=== PATIENT | male | born 1970 | race Caucasian/White ===

== ENCOUNTER 2020-08-15 08:50 | Day surgery (SDC) | payer OTHER ==
[2020-08-14 08:28] VITALS: BMI 24.3
[~2020-08-15 08:50] MED LIST: LACTATED RINGERS 1,000 ML IV SCH; LIDOCAINE 1% (10MG/ML) FOR IV START INTRADERMA PRN
[2020-08-15 09:49] VITALS: RESP 16; TEMP 98.2
[2020-08-15] MEDS ORDERED: LIDOCAINE 1% (10MG/ML) FOR IV START INTRADERMA ONE (09:58)
[2020-08-15] MEDS ORDERED: PROPOFOL 10 MG/ML 20 ML VIAL IV ONE (10:39)
--- NOTE | 2020-08-15 11:30 | P.PCN ---
Date of Procedure: 08/15/20 Description of Procedure: BRIEF HISTORY: Patient is a 50-year-old male presenting for outpatient colonoscopy for evaluation of positive Cologard. No prior colonoscopy. No change in bowel habits. No family history of colon cancer. PROCEDURE PERFORMED: Colonoscopy with polypectomy, Endo Clip placement and tattoo. PREOPERATIVE DIAGNOSIS: Positive Cologard, no prior colonoscopy. ESTIMATED BLOOD LOSS: Minimal. IV sedation per Anesthesia. PROCEDURE: After informed consent was obtained, the patient, was brought into the endoscopy unit. IV sedation was administered by Anesthesia under continuous monitoring. Digital rectal examination was normal. Initially the Olympus CF-190 flexible video colonoscope was then inserted in the rectum, gradually advanced into the cecum without any difficulty. Careful examination was performed as the scope was gradually being withdrawn. Ileocecal valve and the appendiceal orifice were visualized and appeared normal. Prep was excellent. Mucosa of the cecum, ascending colon, transverse colon, descending colon, sigmoid colon, and rectum appeared normal. 4 polyps ranging in size from 4 mm to 7 mm removed from the descending colon, cecum and rectum 2 with cold snare polypectomy. 12 mm ascending colon polyp removed with hot snare polypectomy. Large tubulovillous appearing rectal polyp approximately 10 cm from the anal verge and measuring 2 cm in size removed with hot snare polypectomy with Endo Clip placement 2 for hemostasis and tattoo just distal to the polyp Retroflexion was performed in the rectum and no lesions were seen. The patient tolerated the procedure well. IMPRESSION: 4 polyps removed with cold snare polypectomy from the descending colon, cecum, and rectum 2. Sessile ascending colon polyp removed with hot snare polypectomy. Large rectal polyp measuring 2 cm in size 10 centimeters from the anal verge removed with hot snare polypectomy with Endo Clip placement 2 and 2 mL of ink used to tattoo just distal to the polyp. Recommendations The case was discussed with the patient and his family. Okay for diet. Okay for medications. Await pathology from polypectomies. Follow-up in the clinic next week for further management, patient likely require repeat colonoscopy in the next 6 months to check for complete polypectomy pending pathology from polypectomy.
[2020-08-15 11:43] VITALS: BP 144/88; PULSE 53
== END 2020-08-15 11:56 | disposition home or self-care (01) ==
LOC: ORWHC2ENDO 08:50
PROVIDERS: ATTEND Internal Medicine
DX: D12.2 Benign neoplasm of ascending colon (principal); D12.0 Benign neoplasm of cecum; D12.4 Benign neoplasm of descending colon; D12.8 Benign neoplasm of rectum; I10 Essential (primary) hypertension; E78.5 Hyperlipidemia, unspecified; Z79.899 Other long term (current) drug therapy; Z98.890 Other specified postprocedural states
CPT/HCPCS: 88305; 45385; 45381; J2704; 44404; 45380; 45382

== ENCOUNTER 2022-01-16 12:31 | Day surgery (SDC) | payer OTHER ==
[2022-01-14 13:43] VITALS: BMI 23.6
[2022-01-16 13:13] VITALS: TEMP 97.5
[2022-01-16] MEDS ORDERED: PROPOFOL 10 MG/ML 20 ML VIAL IV ONE (15:02)
--- NOTE | 2022-01-16 15:22 | P.PCN ---
Date of Procedure: 01/16/22 Procedure(s) Performed: BRIEF HISTORY: Patient is a 51-year-old pleasant male scheduled for an elective colonoscopy as a part of value should prior history of colon polyps. Last colonoscopy was one and half years ago and was noted to have multiple colon polyps. Lately has been having intermittent abdominal pain. PROCEDURE PERFORMED: Colonoscopy. PREOPERATIVE DIAGNOSIS: History of colon polyps/abdominal. IV sedation per Anesthesia. PROCEDURE: After informed consent was obtained, the patient, was brought into the endoscopy unit. IV sedation was administered by Anesthesia under continuous monitoring. Digital rectal examination was normal. Initially the Olympus CF-160 flexible video colonoscope was then inserted in the rectum, gradually advanced into the cecum without any difficulty. Careful examination was performed as the scope was gradually being withdrawn. Ileocecal valve and the appendiceal orifice were visualized and appeared normal. Prep was excellent. Mucosa of the cecum, ascending colon, transverse colon, descending colon, sigmoid colon, and rectum appeared normal. In the rectum previous tattoo was noted but no residual polyp identified. Retroflexion was performed in the rectum and no lesions were seen. The patient tolerated the procedure well. IMPRESSION: Normal-appearing colon from rectum to cecum with no evidence of colorectal neoplasia . RECOMMENDATIONS: Findings of this examination were discussed with the patient well as his family. He was advised to have a repeat colonoscopy in 5 years from now because of prior history of colon polyps.
[2022-01-16 15:46] VITALS: BP 155/79; PULSE 74; RESP 15
== END 2022-01-16 16:13 | disposition home or self-care (01) ==
LOC: ORWHC2ENDO 12:31
PROVIDERS: ATTEND Internal Medicine Gastroenterology
DX: Z12.11 Encounter for screening for malignant neoplasm of colon (principal); Z86.010 Personal history of colon polyps; I10 Essential (primary) hypertension; F41.9 Anxiety disorder, unspecified; J44.9 Chronic obstructive pulmonary disease, unspecified; F17.200 Nicotine dependence, unspecified, uncomplicated; Z79.899 Other long term (current) drug therapy
CPT/HCPCS: 45378; J2704

== ENCOUNTER → 2024-07-04 | Day surgery (SDC) | payer MEDICARE, OTHER | LOC: ORWHC2ENDO 12:49 | PROVIDERS: ATTEND Internal Medicine Gastroenterology | DX: Z53.8 Procedure and treatment not carried out for other reasons (principal); R13.10 Dysphagia, unspecified ==